=== PATIENT | female | born 1980 | race Hispanic/Latino ===

== ENCOUNTER → 2022-04-22 | Outpatient (CLI) | payer MEDICAID ==
[~2022-04-22] VITALS: Ht 162.6 cm; Wt 106.3 kg
[~2022-04-22] MED LIST: CALDOLOR 800MG+NS 250ML 250 ML IV ONE; CALDOLOR 800MG+NS 250ML 250 ML IV PRN; CALDOLOR 800MG+NS 250ML 250 ML IV SCH; CEFAZOLIN SODIUM 1 GM VIAL IVPB SCH; CEFAZOLIN SODIUM 3 GM in 0.9%NACL 100ML 100 ML IVPB SCH; FERR-72 PO; GLIM4TAB36 PO; LACTATED RINGERS 1000ML 1,000 ML IV SCH; METF-446 PO; TAMO20TA4 PO; TIRZ2.5P SQ; vitamin d PO
[2022-04-22 11:22] LABS: BASOPHILS % (AUTO) 0.8 % (0.0-5.0); EOSINOPHILS % (AUTO) 2.2 % (0.0-8.0); HEMATOCRIT 46.8 % (36-48); LYMPHOCYTES % (AUTO) 20.3 % (21.0-51.0); MEAN CORPUSCULAR HEMOGLOBIN 21.1 pg (27.0-33.0); MEAN CORPUSCULAR HGB CONC 29.1 g/dL (32.0-36.0); MEAN CORPUSCULAR VOLUME 72.6 fL (79-99); MONOCYTES % (AUTO) 3.9 % (3.0-13.0); NEUTROPHILS % (AUTO) 72.5 % (40.0-77.0); PLATELET COUNT (AUTO) 183 K/uL (130-400); RED BLOOD CELL COUNT(AUTO) 6.45 MIL/uL (4.00-5.50); RED CELL DISTRIBUTION WIDTH 26.4 % (11.0-15.5); WHITE BLOOD COUNT (AUTO) 7.6 K/uL (4.8-10.8)
[2022-04-22 11:37] VITALS: BP 129/62
== END | disposition home or self-care (01) ==
LOC: DAH 10:00 → EDSTATUS 04-27 07:00
PROVIDERS: ATTEND Obstetrics & Gynecology
DX: Z01.818 Encounter for other preprocedural examination (principal); Z20.822 Contact with and (suspected) exposure to COVID-19; N92.0 Excessive and frequent menstruation with regular cycle; E66.01 Morbid (severe) obesity due to excess calories; D50.0 Iron deficiency anemia secondary to blood loss (chronic)
CPT/HCPCS: 86900; 87426; 84703; 85025; 86850; 86901; 36415; A6260; J0690; J1741

== ENCOUNTER → 2022-06-13 | Outpatient (CLI) | payer MEDICAID ==
[~2022-06-13] MED LIST changes: +0.9%NACL 1000ML 1,000 ML IV ONE; -CALDOLOR 800MG+NS 250ML 250 ML IV PRN; -CALDOLOR 800MG+NS 250ML 250 ML IV SCH; -CEFAZOLIN SODIUM 1 GM VIAL IVPB SCH; -CEFAZOLIN SODIUM 3 GM in 0.9%NACL 100ML 100 ML IVPB SCH; +HYDROMORPHONE 1 MG INJ ONE; -LACTATED RINGERS 1000ML 1,000 ML IV SCH
== END | disposition home or self-care (01) ==
LOC: EDSTATUS 07:00 → DAH 10:00
PROVIDERS: ATTEND Obstetrics & Gynecology
DX: Z01.818 Encounter for other preprocedural examination (principal); N92.0 Excessive and frequent menstruation with regular cycle; E66.01 Morbid (severe) obesity due to excess calories; D50.0 Iron deficiency anemia secondary to blood loss (chronic); D25.1 Intramural leiomyoma of uterus
CPT/HCPCS: 86900; 86850; 86901; 36415; J1170; J7030; J1741